=== PATIENT | female | born 1955 | race Caucasian/White ===

== ENCOUNTER → 2017-01-16 | Day surgery (SDC) | payer OTHER ==
[~2017-01-16] MED LIST: ASPIR-LOW81 MG PO; ATIVAN0.5 MG PO; LEVOTHYROXINE125 MCG PO; LISINOPRIL-HCT1 EAC2 PO; METFORMIN HCL500 MG PO; METOPROLOL TART25 MG PO; MIRALAX17 GM PO; NEURONTIN 300300 MG PO; NEXIUM40 MG PO; SIMVASTATIN20 MG PO; TRULICITY0.75 MG/0. SQ
== END | disposition home or self-care (01) ==
LOC: OR 06:23
PROVIDERS: Internal Medicine Gastroenterology
PROC: 0DJD8ZZ Inspection of Lower Intestinal Tract, Via Natural or Artificial Opening Endoscopic (ICD-10-PCS; principal; 2017-01-16 09:00)
DX: K59.09 Other constipation (principal); K64.1 Second degree hemorrhoids; I10 Essential (primary) hypertension; E11.9 Type 2 diabetes mellitus without complications; E07.9 Disorder of thyroid, unspecified; Z86.010 Personal history of colon polyps; Z90.49 Acquired absence of other specified parts of digestive tract; Z79.899 Other long term (current) drug therapy; Z87.19 Personal history of other diseases of the digestive system
CPT/HCPCS: 82962; J7030

== ENCOUNTER 2020-09-10 05:00 | Emergency (ER) | payer MEDICARE, OTHER ==
[~2020-09-10 05:00] MED LIST changes: +AMLODIPINE BESYL5 MG PO; +AMOXICILLIN500 MG PO; -ATIVAN0.5 MG PO; +BASAGLAR K100 UNIT/1 SQ; +BUMETANIDE2 MG PO; +CARTIA XT120 MG PO; +CARVEDILOL25 MG PO; +CATAPRES0.2 MG PO; +COUMADIN 5MG TAB5 MG PO; +COUMADIN4 MG PO; +COUMADIN6 MG PO; +COZAAR50 MG PO; +FLEXERIL 10 MG10 MG PO; +RENA-VITE RX T1 EACH PO; +ZAROXOLYN/DIULO5 MG PO; +ZESTRIL2.5 MG PO; +ZOFRAN 4 MG TAB4 MG PO
[2020-09-10 06:29] LABS: HEMOGLOBIN 9.3 gm/dl (12.3-15.3); RED BLOOD COUNT 2.92 M/UL (4.00-5.10); WHITE BLOOD COUNT 8.7 K/UL (4.5-11.0)
[2020-09-10] MEDS ORDERED: PERCOCET 5/325 T1 EA PO (06:39)
[2020-12-04] MEDS ORDERED: ELIQUIS 2.5 MG2.5 MG PO (12:31)
[2021-02-19] MEDS ORDERED: NEURONTIN 100100 MG PO (15:53)
[2021-02-19] MEDS ORDERED: PRAVASTATIN SOD40 MG PO (15:57)
[2021-02-28] MEDS ORDERED: ATIVAN1 MG PO (08:28)
[2021-02-28] MEDS ORDERED: NORVASC10 MG PO (15:14)
== END 2020-09-10 09:47 | disposition home or self-care (01) ==
LOC: ER1 05:00
PROVIDERS: Family Medicine
DX: G62.9 Polyneuropathy, unspecified (principal); N19 Unspecified kidney failure; I50.9 Heart failure, unspecified; Z99.2 Dependence on renal dialysis
CPT/HCPCS: 80053; 85025; 99283

== ENCOUNTER 2020-10-26 23:07 | Inpatient (IN) | payer MEDICARE, OTHER ==
[~2020-10-26] VITALS: Ht 152.4 cm; Wt 61.2 kg
[~2020-10-26 23:07] MED LIST changes: +PERCOCET 5/325 T1 EA PO
[2020-10-27 00:50] LABS: HEMOGLOBIN 11.5 gm/dl (12.3-15.3); RED BLOOD COUNT 3.66 M/UL (4.00-5.10); WHITE BLOOD COUNT 11.1 K/UL (4.5-11.0)
[2020-10-27 01:23] LABS: BUN/CREATININE RATIO 8 (0-10)
[2020-10-27] MEDS ORDERED: ELIQUIS5 MG PO (11:36)
--- NOTE | 2020-10-30 04:45 | NUR ---
NOTIFIED MD OF CRITICAL POTASSIUM LEVEL OF 5.7. RECIEVED NO NEW ORDERS; PT TO RECIEVE DIALYSIS TODAY. ALSO NOTIFIED PHYSICIAN OF PT FALL. PT FOUND LYING IN THE FLOOR STATING THAT SHE SLID INTO THE FLOOR WHEN SHE TRIED TO GET UP. V/S 132/70, HR-65, R-20, SAT-96%. PT FREE OF INJURY EXCEPT SMALL SKIN TEAR ON RIGHT HAND. WILL CONTINUE TO MONITOR.
[2020-10-31 11:14] LABS: HBSAG SCREEN Negative (Negative); HEP A AB, IGM Negative (Negative); HEP B CORE AB, IGM Negative (Negative); HEP C VIRUS AB <0.1 (0.0-0.9)
[2020-12-04] MEDS ORDERED: ELIQUIS 2.5 MG2.5 MG PO (12:31)
[2021-02-19] MEDS ORDERED: NEURONTIN 100100 MG PO (15:53)
[2021-02-19] MEDS ORDERED: PRAVASTATIN SOD40 MG PO (15:57)
[2021-02-28] MEDS ORDERED: ATIVAN1 MG PO (08:28)
[2021-02-28] MEDS ORDERED: NORVASC10 MG PO (15:14)
== END 2020-10-30 16:05 | disposition home or self-care (01) | DRG 689 ==
LOC: ER1 23:07 → CDU 10-27 03:09 → M/S 10-27 12:13
PROVIDERS: Hospitalist; Physician Assistant; ADMIT Internal Medicine
PROC: 5A1D70Z Performance of Urinary Filtration, Intermittent, Less than 6 Hours Per Day (ICD-10-PCS; principal; 2020-10-30)
DX: N30.00 Acute cystitis without hematuria (principal); N18.6 End stage renal disease; G93.41 Metabolic encephalopathy; Z16.12 Extended spectrum beta lactamase (ESBL) resistance; E87.1 Hypo-osmolality and hyponatremia; I13.2 Hypertensive heart and chronic kidney disease with heart failure and with stage 5 chronic kidney disease, or end stage renal disease; I50.32 Chronic diastolic (congestive) heart failure; E87.5 Hyperkalemia; B96.20 Unspecified Escherichia coli [E. coli] as the cause of diseases classified elsewhere; E11.22 Type 2 diabetes mellitus with diabetic chronic kidney disease; E03.9 Hypothyroidism, unspecified; I27.21 Secondary pulmonary arterial hypertension; D63.8 Anemia in other chronic diseases classified elsewhere; Z99.2 Dependence on renal dialysis; Z79.01 Long term (current) use of anticoagulants; Z90.49 Acquired absence of other specified parts of digestive tract; Z98.890 Other specified postprocedural states; Z83.3 Family history of diabetes mellitus
CPT/HCPCS: 0240U; 36415; 70450; 71045; 80048; 80053; 80074; 80307; 81001; 82140; 82550; 82553; 82607; 82746; 82962; 83605; 83690; 83735; 83874; 83880; 84439; 84443; 84484; 85025; 85610; 85652; 85730; 86140; 87040; 87077; 87086; 87186; 90937; 93005; 94760; 96365; 96372; 96375; 99285; C9113; J0696; J1335

== ENCOUNTER → 2020-10-31 | Outpatient (CLI) | payer MEDICARE, OTHER ==
[~2020-10-31] VITALS: Ht 152.4 cm; Wt 63.0 kg
[~2020-10-31] MED LIST changes: +ALBUTEROL2.5 MG/3 M INH; +ATIVAN1 MG PO; +CALCIUM ACETAT667 M1 PO; +ELIQUIS 2.5 MG2.5 MG PO; +ELIQUIS5 MG PO; +FLONASE 0.05% N16 GM; +GABAPENTIN400 MG PO; +MEGA BIOTIN10000 MCG PO; +NEURONTIN 100100 MG PO; +NORVASC10 MG PO; +PRAVASTATIN SOD40 MG PO; +ULTRAM50 MG PO; +VENTOLIN HFA 66.7 GM INH
== END ==
LOC: OPSV 08:43
DX: N30.90 Cystitis, unspecified without hematuria (principal); B96.20 Unspecified Escherichia coli [E. coli] as the cause of diseases classified elsewhere; Z16.12 Extended spectrum beta lactamase (ESBL) resistance
CPT/HCPCS: 96365; J1335

== ENCOUNTER → 2020-11-01 | Outpatient (CLI) | payer MEDICARE, OTHER ==
[~2020-11-01] VITALS: Ht 152.4 cm; Wt 63.0 kg
== END ==
LOC: OPSV 07:35
DX: N30.90 Cystitis, unspecified without hematuria (principal); B96.20 Unspecified Escherichia coli [E. coli] as the cause of diseases classified elsewhere; Z16.12 Extended spectrum beta lactamase (ESBL) resistance
CPT/HCPCS: 96365; J1335

== ENCOUNTER → 2020-11-02 | Outpatient (CLI) | payer MEDICARE, OTHER ==
[~2020-11-02] VITALS: Ht 152.4 cm; Wt 63.0 kg
== END ==
LOC: OPSV 08:30
DX: N30.90 Cystitis, unspecified without hematuria (principal)
CPT/HCPCS: 96365; J1335

== ENCOUNTER → 2020-11-04 | Outpatient (CLI) | payer MEDICARE, OTHER ==
[~2020-11-04] VITALS: Ht 152.4 cm; Wt 61.2 kg
== END ==
LOC: OPSV 07:30
DX: N30.90 Cystitis, unspecified without hematuria (principal); B96.20 Unspecified Escherichia coli [E. coli] as the cause of diseases classified elsewhere; Z16.12 Extended spectrum beta lactamase (ESBL) resistance
CPT/HCPCS: 96365; J1335

== ENCOUNTER → 2020-11-05 | Outpatient (CLI) | payer MEDICARE, OTHER ==
[~2020-11-05] VITALS: Ht 152.4 cm; Wt 61.2 kg
== END ==
LOC: OPSV 07:40
DX: N30.90 Cystitis, unspecified without hematuria (principal); B96.20 Unspecified Escherichia coli [E. coli] as the cause of diseases classified elsewhere; Z16.12 Extended spectrum beta lactamase (ESBL) resistance
CPT/HCPCS: 96365; J1335

== ENCOUNTER 2020-11-26 16:48 | Emergency (ER) | payer MEDICARE, OTHER ==
[~2020-11-26 16:48] MED LIST changes: -ALBUTEROL2.5 MG/3 M INH; -ATIVAN1 MG PO; -CALCIUM ACETAT667 M1 PO; -ELIQUIS 2.5 MG2.5 MG PO; -FLONASE 0.05% N16 GM; -GABAPENTIN400 MG PO; -MEGA BIOTIN10000 MCG PO; -NEURONTIN 100100 MG PO; -NORVASC10 MG PO; -PRAVASTATIN SOD40 MG PO; -ULTRAM50 MG PO; -VENTOLIN HFA 66.7 GM INH
[2020-11-26 17:40] LABS: HEMOGLOBIN 10.9 gm/dl (12.3-15.3); RED BLOOD COUNT 3.46 M/UL (4.00-5.10); WHITE BLOOD COUNT 6.7 K/UL (4.5-11.0)
[2020-11-28 01:57] LABS: ACINETOBACTER BAUMANNII Not Detected (Negative); CANDIDA ALBICANS Not Detected (Negative); CANDIDA KRUSEI Not Detected (Negative); CANDIDA TROPICALIS Not Detected (Negative); ENTEROCOCCUS Not Detected (Negative); ESCHERICHIA COLI Not Detected (Negative); HAEMOPHILUS INFLUENZAE Not Detected (Negative); KLEBSIELLA OXYTOCA Not Detected (Negative); KLEBSIELLA PNEUMONIAE Not Detected (Negative); KPC-CARBAPENEM-RESISTANCE GENE Not Detected (Negative); PROTEUS Not Detected (Negative); PSEUDOMONAS AERUGINOSA Not Detected (Negative); SERRATIA MARCESANS Not Detected (Negative); STAPHYLOCOCCUS AUREUS Not Detected (Negative); STREP AGALACTIAE (GROUP B) Not Detected (Negative); STREP PYOGENES (GROUP A) Not Detected (Negative); STREPTOCOCCUS Not Detected (Negative); vanA/B (VANCOMYCIN RESIST GENE Not Detected (Negative)
[2020-11-28 02:51] LABS: STAPHYLOCOCCUS DETECTED (Negative); mecA (METHICILLIN RESIST GENE DETECTED (Negative)
[2020-12-04] MEDS ORDERED: ELIQUIS 2.5 MG2.5 MG PO (12:31)
[2021-02-19] MEDS ORDERED: NEURONTIN 100100 MG PO (15:53)
[2021-02-19] MEDS ORDERED: PRAVASTATIN SOD40 MG PO (15:57)
[2021-02-28] MEDS ORDERED: ATIVAN1 MG PO (08:28)
[2021-02-28] MEDS ORDERED: NORVASC10 MG PO (15:14)
== END 2020-11-26 20:39 | disposition home or self-care (01) ==
LOC: ER1 16:48
PROVIDERS: Family Medicine
DX: N18.6 End stage renal disease (principal); Z99.2 Dependence on renal dialysis; J44.9 Chronic obstructive pulmonary disease, unspecified
CPT/HCPCS: 36600; 71045; 80053; 81001; 82550; 82553; 82803; 83605; 83735; 83874; 84439; 84443; 84484; 85025; 87040; 87077; 87086; 87150; 87186; 93005; 94760; 99285

== ENCOUNTER 2020-11-28 03:48 | Inpatient (IN) | payer MEDICARE, OTHER ==
[~2020-11-28] VITALS: Ht 152.4 cm; Wt 58.2 kg
[2020-11-28 06:39] LABS: HEMOGLOBIN 10.7 gm/dl (12.3-15.3); RED BLOOD COUNT 3.49 M/UL (4.00-5.10); WHITE BLOOD COUNT 7.6 K/UL (4.5-11.0)
[2020-11-28] MEDS ORDERED: GABAPENTIN400 MG PO (12:08)
[2020-11-28] MEDS ORDERED: ULTRAM50 MG PO (15:12)
[2020-11-28] MEDS ORDERED: CALCIUM ACETAT667 M1 PO (15:13)
[2020-11-28] MEDS ORDERED: FLONASE 0.05% N16 GM (15:21)
[2020-11-28] MEDS ORDERED: ALBUTEROL2.5 MG/3 M INH (15:21)
[2020-11-29 05:43] LABS: HEMOGLOBIN 10.5 gm/dl (12.3-15.3); RED BLOOD COUNT 3.42 M/UL (4.00-5.10); WHITE BLOOD COUNT 8.4 K/UL (4.5-11.0)
[2020-11-29 22:27] LABS: ACINETOBACTER BAUMANNII Not Detected (Negative); CANDIDA ALBICANS Not Detected (Negative); CANDIDA KRUSEI Not Detected (Negative); CANDIDA TROPICALIS Not Detected (Negative); ENTEROCOCCUS Not Detected (Negative); ESCHERICHIA COLI Not Detected (Negative); HAEMOPHILUS INFLUENZAE Not Detected (Negative); KLEBSIELLA OXYTOCA Not Detected (Negative); KLEBSIELLA PNEUMONIAE Not Detected (Negative); KPC-CARBAPENEM-RESISTANCE GENE Not Detected (Negative); PROTEUS Not Detected (Negative); PSEUDOMONAS AERUGINOSA Not Detected (Negative); SERRATIA MARCESANS Not Detected (Negative); STAPHYLOCOCCUS AUREUS Not Detected (Negative); STREP AGALACTIAE (GROUP B) Not Detected (Negative); STREP PYOGENES (GROUP A) Not Detected (Negative); STREPTOCOCCUS Not Detected (Negative); mecA (METHICILLIN RESIST GENE Not Detected (Negative); vanA/B (VANCOMYCIN RESIST GENE Not Detected (Negative)
[2020-11-29 22:30] LABS: STAPHYLOCOCCUS DETECTED (Negative)
[2020-12-01 05:41] LABS: HEMOGLOBIN 10.3 gm/dl (12.3-15.3); RED BLOOD COUNT 3.33 M/UL (4.00-5.10); WHITE BLOOD COUNT 8.1 K/UL (4.5-11.0)
[2020-12-02 05:45] LABS: HEMOGLOBIN 9.7 gm/dl (12.3-15.3); RED BLOOD COUNT 3.29 M/UL (4.00-5.10); WHITE BLOOD COUNT 9.4 K/UL (4.5-11.0)
[2020-12-03 02:52] LABS: HEMOGLOBIN 10.5 gm/dl (12.3-15.3); RED BLOOD COUNT 3.36 M/UL (4.00-5.10); WHITE BLOOD COUNT 8.6 K/UL (4.5-11.0)
[2020-12-04] MEDS ORDERED: ELIQUIS 2.5 MG2.5 MG PO (12:31)
[2021-02-19] MEDS ORDERED: NEURONTIN 100100 MG PO (15:53)
[2021-02-19] MEDS ORDERED: PRAVASTATIN SOD40 MG PO (15:57)
[2021-02-28] MEDS ORDERED: ATIVAN1 MG PO (08:28)
[2021-02-28] MEDS ORDERED: NORVASC10 MG PO (15:14)
== END 2020-12-04 15:18 | disposition home or self-care (01) | DRG 871 ==
LOC: ER1 03:48 → MED SURG 4 09:33 → CDU 09:33 → MED SURG 4 21:15
PROVIDERS: Physician Assistant; Physician Assistant Medical; Student in an Organized Health Care Education/Training Program; ADMIT Internal Medicine
PROC: 5A1D70Z Performance of Urinary Filtration, Intermittent, Less than 6 Hours Per Day (ICD-10-PCS; principal; 2020-11-30)
PROC: B24BZZ4 Ultrasonography of Heart with Aorta, Transesophageal (ICD-10-PCS; 2020-11-30)
DX: R78.81 Bacteremia (principal); N18.6 End stage renal disease; G92 Toxic encephalopathy; I13.2 Hypertensive heart and chronic kidney disease with heart failure and with stage 5 chronic kidney disease, or end stage renal disease; I50.32 Chronic diastolic (congestive) heart failure; E87.2 Acidosis; Z20.822 Contact with and (suspected) exposure to COVID-19; B95.4 Other streptococcus as the cause of diseases classified elsewhere; I27.20 Pulmonary hypertension, unspecified; E87.5 Hyperkalemia; D69.6 Thrombocytopenia, unspecified; J44.9 Chronic obstructive pulmonary disease, unspecified; F17.210 Nicotine dependence, cigarettes, uncomplicated; I08.1 Rheumatic disorders of both mitral and tricuspid valves; R53.81 Other malaise; E03.9 Hypothyroidism, unspecified; E11.22 Type 2 diabetes mellitus with diabetic chronic kidney disease; D63.1 Anemia in chronic kidney disease; Z99.2 Dependence on renal dialysis; Z86.74 Personal history of sudden cardiac arrest; Z83.3 Family history of diabetes mellitus; Z80.3 Family history of malignant neoplasm of breast; Z80.1 Family history of malignant neoplasm of trachea, bronchus and lung; Z80.0 Family history of malignant neoplasm of digestive organs; Z90.49 Acquired absence of other specified parts of digestive tract
CPT/HCPCS: ECHO; 36415; 70450; 71045; 80048; 80053; 80202; 82140; 82962; 83605; 83735; 84100; 85025; 85027; 85610; 86140; 87040; 87077; 87150; 87186; 90935; 90937; 93306; 94760; 96374; 96376; 99285; G0378; J3370; J7070; U0002

== ENCOUNTER 2021-02-19 09:09 | Observation (INO) | payer MEDICARE, OTHER ==
[~2021-02-19] VITALS: Ht 152.4 cm; Wt 54.4 kg
[~2021-02-19 09:09] MED LIST changes: +ALBUTEROL2.5 MG/3 M INH; -COZAAR50 MG PO; +ELIQUIS 2.5 MG2.5 MG PO; +FLONASE 0.05% N16 GM; +GABAPENTIN400 MG PO; +ULTRAM50 MG PO
[2021-02-19 11:43] LABS: BUN/CREATININE RATIO 7 (0-10)
[2021-02-19 12:54] LABS: HEMOGLOBIN 9.7 gm/dl (12.3-15.3); RED BLOOD COUNT 3.26 M/UL (4.00-5.10); WHITE BLOOD COUNT 7.6 K/UL (4.5-11.0)
[2021-02-19] MEDS ORDERED: ZOFRAN 4 MG TAB4 MG PO (15:55)
[2021-02-19] MEDS ORDERED: VENTOLIN HFA 66.7 GM INH (15:56)
[2021-02-19 18:44] LABS: BODY FLUID SOURCE PLEURAL
[2021-02-19 18:45] LABS: RBC (AUTOMATED) 20300 (0-100000); WBC (AUTOMATED) 444 (0-500)
[2021-02-19 18:46] LABS: MONONUCLEAR CELLS 93.9 (75-100); POLYMORPHONUCLEAR % 6.1 (0-25)
[2021-02-19 18:54] LABS: LDH, BODY FLUID 175 U/L; TOTAL PROTEIN, BODY FLUID 2.8 gm/dL
[2021-02-20 06:47] LABS: RED BLOOD COUNT 3.35 M/UL (4.00-5.10); WHITE BLOOD COUNT 7.4 K/UL (4.5-11.0)
[2021-02-28] MEDS ORDERED: ATIVAN1 MG PO (08:28)
== END 2021-02-21 00:05 | disposition other institution (70) ==
LOC: ER1 09:09 → PROG CARE 13:36 → CDU 13:36 → PROG CARE 21:29
PROVIDERS: Physician Assistant; ADMIT Internal Medicine Infectious Disease
DX: I13.2 Hypertensive heart and chronic kidney disease with heart failure and with stage 5 chronic kidney disease, or end stage renal disease (principal); I50.32 Chronic diastolic (congestive) heart failure; N18.6 End stage renal disease; J96.01 Acute respiratory failure with hypoxia; Z99.2 Dependence on renal dialysis; E87.5 Hyperkalemia; E11.22 Type 2 diabetes mellitus with diabetic chronic kidney disease; E03.9 Hypothyroidism, unspecified; D63.1 Anemia in chronic kidney disease; Z90.49 Acquired absence of other specified parts of digestive tract; Z79.01 Long term (current) use of anticoagulants; Z87.891 Personal history of nicotine dependence; F41.9 Anxiety disorder, unspecified; F32.9 Major depressive disorder, single episode, unspecified; Z20.822 Contact with and (suspected) exposure to COVID-19; J44.9 Chronic obstructive pulmonary disease, unspecified; R94.31 Abnormal electrocardiogram [ECG] [EKG]
CPT/HCPCS: 36415; 36600; 71045; 71046; 71250; 80048; 80053; 82550; 82553; 82803; 82962; 83615; 83874; 83880; 84157; 84484; 85025; 87070; 87205; 89051; 93005; 94664; 94760; 99285; G0257; G0378; J2270; U0002

== ENCOUNTER 2021-02-28 09:05 | Inpatient (IN) | payer MEDICARE, OTHER ==
[~2021-02-28] VITALS: Ht 154.9 cm; Wt 54.4 kg
[~2021-02-28 09:05] MED LIST changes: +ATIVAN1 MG PO; +VENTOLIN HFA 66.7 GM INH
[2021-02-28 10:18] LABS: HEMOGLOBIN 9.2 gm/dl (12.3-15.3); RED BLOOD COUNT 3.1 M/UL (4.00-5.10)
[2021-02-28] MEDS ORDERED: MEGA BIOTIN10000 MCG PO (15:21)
[2021-02-28] MEDS ORDERED: ELIQUIS 2.5 MG2.5 MG PO (18:08)
[2021-03-01 04:01] LABS: HEMOGLOBIN 9.1 gm/dl (12.3-15.3); RED BLOOD COUNT 3.02 M/UL (4.00-5.10); WHITE BLOOD COUNT 10.6 K/UL (4.5-11.0)
[2021-03-02 03:44] LABS: HEMOGLOBIN 9.3 gm/dl (12.3-15.3); RED BLOOD COUNT 3.19 M/UL (4.00-5.10); WHITE BLOOD COUNT 11.3 K/UL (4.5-11.0)
[2021-03-03 06:54] LABS: HEMOGLOBIN 9.3 gm/dl (12.3-15.3); RED BLOOD COUNT 3.14 M/UL (4.00-5.10); WHITE BLOOD COUNT 13.1 K/UL (4.5-11.0)
[2021-03-04 06:44] LABS: HEMOGLOBIN 10.9 gm/dl (12.3-15.3); WHITE BLOOD COUNT 15.9 K/UL (4.5-11.0)
[2021-03-04 06:45] LABS: RED BLOOD COUNT 3.68 M/UL (4.00-5.10)
[2021-03-05 05:52] LABS: RED BLOOD COUNT 3.68 M/UL (4.00-5.10); WHITE BLOOD COUNT 13.2 K/UL (4.5-11.0)
--- NOTE | 2021-03-05 06:00 | NUR ---
7888- WENT IN TO GIVE PATIENT HER MEDICINE AND SHE WOULDN'T HARDLY WAKE UP. STERNAL RUB WOKE HER UP SOME BUT NOT A WHOLE LOT. I NOTICED THAT PATIENTS RIGHT PUPIL WAS SLIGHTLY LARGER THEN LEFT PUPIL. NOTIFIED DR HANSON AND HE ORDERED ABG AND NARCAN. WENT IN TO GIVE NARCAN AND PATIENT WOKE UP BEFORE GIVING AND TOLD ME SHE WAS JUST TOO TIRED AND WANTED TO SLEEP AND WAS HAVING CONVERSATION WITH ME. I GAVE PATIENT NARCAN AND WHEN RESPIRATORY CAME TO DO ABG SHE REFUSED TO LET HIM STICK HER AGAIN AFTER ONCE UNSUCCESSFUL STICK. NOTIFIED DR HANSON AND HE SAID IF PATIENT IS AWAKE JUST CANCEL ABG AND LET HER SLEEP.
[2021-03-06 05:52] LABS: HEMOGLOBIN 11.6 gm/dl (12.3-15.3); RED BLOOD COUNT 3.99 M/UL (4.00-5.10); WHITE BLOOD COUNT 11.9 K/UL (4.5-11.0)
[2021-03-07] MEDS ORDERED: LINEZOLID600 MG/300 IV (11:58)
[2021-03-07] MEDS ORDERED: HYDROCODON-ACE1 EAC2 PO (12:01)
[2021-03-07] MEDS ORDERED: ZYVOX600 MG PO (14:45)
--- NOTE | 2021-03-07 17:35 | NUR ---
REPORT CALLED TO [facility]. VERBAL DISCHARGE COMPLETED WITH DAUGHTER OVER THE PHONE WITH VERBLIZED UNDERSTANDING.
== END 2021-03-07 17:37 | disposition home or self-care (01) | DRG 199 ==
LOC: ER1 09:05 → CDU 16:29 → M/S 20:40 → CDU 20:40 → CCU 23:16 → CDU 23:16 → M/S 23:16 → CCU 03-01 08:46 → M/S 03-01 19:43
PROVIDERS: Emergency Medicine; Internal Medicine Infectious Disease; ADMIT Internal Medicine
PROC: 0W2BX0Z Change Drainage Device in Left Pleural Cavity, External Approach (ICD-10-PCS; principal; 2021-02-28)
PROC: 5A1D70Z Performance of Urinary Filtration, Intermittent, Less than 6 Hours Per Day (ICD-10-PCS; 2021-03-01)
DX: J93.9 Pneumothorax, unspecified (principal); N18.6 End stage renal disease; G92 Toxic encephalopathy; J96.21 Acute and chronic respiratory failure with hypoxia; I50.33 Acute on chronic diastolic (congestive) heart failure; Z20.822 Contact with and (suspected) exposure to COVID-19; Z51.5 Encounter for palliative care; I13.2 Hypertensive heart and chronic kidney disease with heart failure and with stage 5 chronic kidney disease, or end stage renal disease; J90 Pleural effusion, not elsewhere classified; R64 Cachexia; E44.0 Moderate protein-calorie malnutrition; Z16.11 Resistance to penicillins; Z16.21 Resistance to vancomycin; J95.89 Other postprocedural complications and disorders of respiratory system, not elsewhere classified; E87.6 Hypokalemia; I27.20 Pulmonary hypertension, unspecified; E11.22 Type 2 diabetes mellitus with diabetic chronic kidney disease; D63.1 Anemia in chronic kidney disease; E03.9 Hypothyroidism, unspecified; F41.9 Anxiety disorder, unspecified; Y83.8 Other surgical procedures as the cause of abnormal reaction of the patient, or of later complication, without mention of misadventure at the time of the procedure; R53.81 Other malaise; Z99.2 Dependence on renal dialysis; Z90.49 Acquired absence of other specified parts of digestive tract; Z80.3 Family history of malignant neoplasm of breast; Z80.0 Family history of malignant neoplasm of digestive organs; Z80.1 Family history of malignant neoplasm of trachea, bronchus and lung; Z87.891 Personal history of nicotine dependence; Z88.6 Allergy status to analgesic agent; Z99.81 Dependence on supplemental oxygen; Z68.24 Body mass index [BMI] 24.0-24.9, adult
CPT/HCPCS: 0240U; 36415; 36556; 70450; 71045; 80048; 80053; 80202; 82140; 82550; 82553; 82962; 83605; 83615; 83690; 83735; 84439; 84443; 84484; 85025; 86140; 87040; 87070; 87077; 87186; 87205; 90935; 90937; 93005; 96374; 96375; 97110-GP-CQ; 97116-GP-CQ; 97162; 97530-GP-CQ; 99285; C1751; J0692; J0713; J2020; J2185; J2310; J2543; J3370; J7030; J7070; Q5105

== ENCOUNTER 2021-03-23 11:14 | Emergency (ER) | payer MEDICARE, OTHER ==
[~2021-03-23 11:14] MED LIST changes: +HYDROCODON-ACE1 EAC2 PO; +LINEZOLID600 MG/300 IV; +MEGA BIOTIN10000 MCG PO; +ZYVOX600 MG PO
== END 2021-03-23 16:10 | disposition home or self-care (01) ==
LOC: ER1 11:14
DX: Z00.00 Encounter for general adult medical examination without abnormal findings (principal); J44.9 Chronic obstructive pulmonary disease, unspecified; I25.10 Atherosclerotic heart disease of native coronary artery without angina pectoris; N18.30 Chronic kidney disease, stage 3 unspecified
CPT/HCPCS: 99283

== ENCOUNTER 2021-03-24 08:57 | Inpatient (IN) | payer MEDICARE, OTHER ==
[~2021-03-24] VITALS: Ht 152.4 cm; Wt 54.4 kg
[2021-03-24 09:55] LABS: HEMOGLOBIN 7.1 gm/dl (12.3-15.3); RED BLOOD COUNT 2.41 M/UL (4.00-5.10)
[2021-03-24 10:19] LABS: BUN/CREATININE RATIO 8 (0-10)
[2021-03-25 05:06] LABS: WHITE BLOOD COUNT 6.8 K/UL (4.5-11.0)
[2021-03-25 05:18] LABS: HEMOGLOBIN 9.2 gm/dl (12.3-15.3); RED BLOOD COUNT 3.18 M/UL (4.00-5.10)
[2021-03-25] MEDS ORDERED: CLONAZEPAM1 MG PO (11:59)
[2021-03-25] MEDS ORDERED: DIFLUCAN100 MG PO (12:01)
[2021-03-25] MEDS ORDERED: PROZAC10 MG PO (12:02)
[2021-03-25] MEDS ORDERED: HYDROCODON-ACE1 EAC2 PO (12:04)
[2021-03-25] MEDS ORDERED: COZAAR50 MG PO (15:10)
[2021-03-25] MEDS ORDERED: CALCIUM ACETAT667 M1 PO (15:13)
[2021-03-25] MEDS ORDERED: NORVASC10 MG PO (15:14)
[2021-03-25] MEDS ORDERED: NEURONTIN 100100 MG PO (15:53)
[2021-03-25] MEDS ORDERED: PRAVASTATIN SOD40 MG PO (15:57)
[2021-03-26 11:50] LABS: HEMOGLOBIN 7.8 gm/dl (12.3-15.3); WHITE BLOOD COUNT 7.9 K/UL (4.5-11.0)
[2021-03-26 12:08] LABS: RED BLOOD COUNT 2.74 M/UL (4.00-5.10)
[2021-03-27 05:23] LABS: WHITE BLOOD COUNT 8.1 K/UL (4.5-11.0)
[2021-03-27 05:24] LABS: RED BLOOD COUNT 3.04 M/UL (4.00-5.10)
[2021-03-27] MEDS ORDERED: DEX4 GLUCOSE4 GM PO (17:27)
[2021-03-27] MEDS ORDERED: HUMALOG 10100 UNITS/ SC (17:27)
== END 2021-03-27 20:43 | disposition home health service (06) | DRG 813 ==
LOC: ER1 08:57 → MED SURG 4 15:19 → CDU 15:19 → MED SURG 4 03-26 01:28
PROVIDERS: Emergency Medicine; Internal Medicine; Physician Assistant; ADMIT Internal Medicine
PROC: 30233N1 Transfusion of Nonautologous Red Blood Cells into Peripheral Vein, Percutaneous Approach (ICD-10-PCS; principal; 2021-03-24)
DX: D69.59 Other secondary thrombocytopenia (principal); N18.6 End stage renal disease; J90 Pleural effusion, not elsewhere classified; Z20.822 Contact with and (suspected) exposure to COVID-19; Z16.21 Resistance to vancomycin; I13.2 Hypertensive heart and chronic kidney disease with heart failure and with stage 5 chronic kidney disease, or end stage renal disease; J94.8 Other specified pleural conditions; B95.2 Enterococcus as the cause of diseases classified elsewhere; E03.9 Hypothyroidism, unspecified; E87.6 Hypokalemia; E83.39 Other disorders of phosphorus metabolism; F41.9 Anxiety disorder, unspecified; F32.9 Major depressive disorder, single episode, unspecified; E87.70 Fluid overload, unspecified; E11.22 Type 2 diabetes mellitus with diabetic chronic kidney disease; I27.20 Pulmonary hypertension, unspecified; T36.8X5A Adverse effect of other systemic antibiotics, initial encounter; D63.1 Anemia in chronic kidney disease; Z99.2 Dependence on renal dialysis; Z91.14 Patient's other noncompliance with medication regimen; Z79.01 Long term (current) use of anticoagulants; Z79.4 Long term (current) use of insulin; Z83.3 Family history of diabetes mellitus; Z80.0 Family history of malignant neoplasm of digestive organs; Z80.3 Family history of malignant neoplasm of breast; Z80.1 Family history of malignant neoplasm of trachea, bronchus and lung
CPT/HCPCS: 36415; 36430; 70450; 71045; 71046; 71250; 80048; 80053; 82272; 82550; 82553; 82607; 82728; 82746; 82962; 83540; 83550; 83605; 83690; 83735; 83874; 83880; 84100; 84132; 84484; 85025; 85610; 85730; 86850; 86900; 86901; 86920; 87040; 90935; 93005; 97161; 99283; 99285; J2020; J2543; J7050; P9016; P9047; U0002

== ENCOUNTER 2021-04-25 23:55 | Emergency (ER) | payer MEDICARE, OTHER ==
[~2021-04-25 23:55] MED LIST changes: +CALCIUM ACETAT667 M1 PO; +CLONAZEPAM1 MG PO; +COZAAR50 MG PO; +DEX4 GLUCOSE4 GM PO; +DIFLUCAN100 MG PO; +HUMALOG 10100 UNITS/ SC; +NEURONTIN 100100 MG PO; +NORVASC10 MG PO; +PRAVASTATIN SOD40 MG PO; +PROZAC10 MG PO
[2021-04-26 01:07] LABS: HEMOGLOBIN 7.7 gm/dl (12.3-15.3); RED BLOOD COUNT 2.62 M/UL (4.00-5.10)
[2021-04-26 01:25] LABS: WHITE BLOOD COUNT 41.7 K/UL (4.5-11.0)
== END 2021-04-26 00:45 | disposition home or self-care (01) ==
LOC: ER1 23:55 → CDU 04-26 00:11 → ER1 04-26 00:11
PROVIDERS: Student in an Organized Health Care Education/Training Program
DX: I46.9 Cardiac arrest, cause unspecified (principal); N18.6 End stage renal disease; Z99.2 Dependence on renal dialysis; I21.3 ST elevation (STEMI) myocardial infarction of unspecified site; Z20.822 Contact with and (suspected) exposure to COVID-19
CPT/HCPCS: 31500; 36600; 51702; 80053; 82550; 82553; 82803; 83874; 84484; 85025; 85610; 85730; 92950; 93005; 94002; 99285; J0171; J0461; J1265; J1644; J2370; J7040; Q9965; U0002